=== PATIENT | male | born 1970 | race American Indian/Alaskan Native ===

== ENCOUNTER 2019-05-27 11:16 | Emergency (ER) | payer MEDICAID ==
[~2019-05-27] VITALS: Ht 172.7 cm; Wt 84.5 kg
--- NOTE | 2019-05-27 11:40 | NUR ---
Pt arrived on the unit ambulating self, accompanied by EMT. Pt is changed in to hospital for special care scrubs. All personal items inventoried and valuables placed in to safe, clothing and shoes placed in ambulance bay lockers. Pt is here on a 5150 written at [facility] for SI. He reports that he has a PMH: schizophrenia with AH. He reports currently being suicidal without a plan. He also states that he has AH that are derogatory but no commanding. His speech is clear and his eye contact is direct. He has been on risperdone on the past, but he reports that he was taken off of it by his doctor. He states that this has helped his symptoms in the past. He reports feelings of paranoia. He exhibits a flat affect. No visible rashes or open wounds on visible skin. Pt is a non smoker. No distress observed at this time. Pt is sitting at edge of bed. Pt was oriented to the unit, questions were answered and Pt denied needs at this time. Water and snack given to patient. Will continue to monitor.
[2019-05-27] MEDS ORDERED: OLANZapine 2.5MG tablet PO STA (12:19)
[2019-05-27] MEDS ORDERED: risperiDONE 0.5mg tablet PO ONE (12:20)
[2019-05-27 12:37] LABS: URINE AMPHETAMINE SCREEN NEGATIVE (Neg); URINE BARBITUATE SCREEN NEGATIVE (Neg); URINE BENZODIAZEPINES SCREEN NEGATIVE (Neg); URINE CANNABINOID SCREEN NEGATIVE (Neg); URINE COCAINE SCREEN NEGATIVE (Neg); URINE METHADONE SCREEN NEGATIVE (Neg); URINE OPIATE SCREEN NEGATIVE (Neg); URINE PHENCYCLIDINE SCREEN NEGATIVE (Neg)
[2019-05-27 12:47] LABS: BASOPHILS # (AUTO) 0.1 X10'3 (0-0.2); BASOPHILS % (AUTO) 0.8 % (0-1); EOSINOPHILS # (AUTO) 0.4 X10'3 (0-0.9); EOSINOPHILS % (AUTO) 5.8 % (0-6); HEMATOCRIT 44.1 % (42.0-52.0); HEMOGLOBIN 15.1 g/dl (14.0-17.9); LYMPHOCYTES # (AUTO) 1.6 X10'3 (1.1-4.8); LYMPHOCYTES % (AUTO) 21.4 % (21-51); MEAN CORPUSCULAR HEMOGLOBIN 33.2 PG (27.0-31.0); MEAN CORPUSCULAR HGB CONC 34.3 g/dL (33.0-36.5); MEAN CORPUSCULAR VOLUME 96.8 FL (78-98); MEAN PLATELET VOLUME 7.9 FL (7.4-10.4); MONOCYTES # (AUTO) 0.5 X10'3 (0-0.9); MONOCYTES % (AUTO) 6.8 % (2-12); NEUTROPHILS # (AUTO) 4.9 X10'3 (1.8-7.7); NEUTROPHILS % (AUTO) 65.2 % (42-75); PLATELET COUNT 310 X10'3 (140-440); RED BLOOD COUNT 4.56 X10'6 (4.70-6.10); RED CELL DISTRIBUTION WIDTH 14.5 % (11.5-14.5); WHITE BLOOD COUNT 7.5 X10'3 (4.5-11.0)
[2019-05-27 13:02] LABS: ALANINE AMINOTRANSFERASE 33 U/L (12-78); ALBUMIN 3.6 G/DL (3.4-5.0); ALBUMIN/GLOBULIN RATIO 0.9 (1.1-1.5); ALKALINE PHOSPHATASE 69 IU/L (46-116); ANION GAP 7 (8-16); ASPARTATE AMINO TRANSFERASE 21 U/L (10-37); BILIRUBIN,TOTAL 0.2 MG/DL (0.1-1.0); BLOOD UREA NITROGEN 17 MG/DL (7-18); BUN/CREATININE RATIO 15.6 (5.4-32.0); CALCIUM 8.4 MG/DL (8.5-10.1); CHLORIDE 106 MMOL/L (99-107); CREATININE 1.09 MG/DL (0.60-1.10); GLUCOSE 98 MG/DL (70-104); POTASSIUM 4.2 MMOL/L (3.5-5.1); SODIUM 142 MMOL/L (135-145); TOTAL CARBON DIOXIDE 28.8 MMOL/L (24-32); TOTAL PROTEIN 7.5 G/DL (6.4-8.2); eGFR 72 ML/MIN
[2019-05-27 13:09] LABS: ETHANOL < 0.010 GM/DL (0.0-0.010)
--- NOTE | 2019-05-27 13:28 | NUR ---
Called lab RE: UA orders
[2019-05-27 13:40] LABS: CLARITY,URINE CLEAR (Clear); COLOR,URINE STRAW (Yellow); GLUCOSE, URINE NEGATIVE (Neg); KETONES,URINE NEGATIVE (Neg); LEUKOCYTE ESTERASE ,URINE NEGATIVE (Neg); NITRITES, URINE NEGATIVE (Neg); OCCULT BLOOD,URINE NEGATIVE (Neg); PH,URINE 5.5 (4.8-8.0); PROTEIN,URINE NEGATIVE (Neg); UROBILINOGEN,URINE 0.2 E.U/dL (0.2-1.0)
[2019-05-27 13:43] LABS: UA COLLECTION TYPE CLN CATCH MIDSTREAM
--- NOTE | 2019-05-27 14:06 | NUR ---
spoke with Dr Mesa. Will come over to evaluate pt for medical clearance
[2019-05-27] MEDS ORDERED: FLO0.4C PO (14:51)
[2019-05-27] MEDS ORDERED: METO-395 PO (14:51)
[2019-05-27] MEDS ORDERED: LEVO175T7 PO (14:51)
[2019-05-27] MEDS ORDERED: HYDR-3686 PO (14:51)
[2019-05-27] MEDS ORDERED: LIT300C PO (14:51)
--- NOTE | 2019-05-27 15:02 | NUR ---
PACKET FAXED TO [facility]
--- NOTE | 2019-05-27 17:15 | NUR ---
Pt is resting in bed peacefully at this time. No distress observed.
--- NOTE | 2019-05-27 20:00 | NUR ---
One to one with the patient to assess severity psychiatric symptoms. The patient is resting on his bed and awakened easily for the evening assessment. He stated that he has not been sleeping well at home and stated he has only been sleeping approximately 2 hours per night. He stated that his psychiatrist took him off his antipsychotic and that he has been hearing voices but having no visual hallucinations. He reports he was feeling paranoid at home but feels safe here. He reports feeling suicidal but denies having a plan.
--- NOTE | 2019-05-27 21:44 | NUR ---
The patient appears to be sleeping at this time.
[2019-05-27] MEDS ORDERED: lithium carbonate 300mg SR tablet (LithoBID) PO SCH (22:46)
[2019-05-27] MEDS ORDERED: hydrOXYzine 25 MG tablet PO SCH (22:46)
[2019-05-27] MEDS: tamsulosin 0.4mg capsule PO SCH (23:17)
[2019-05-27] MEDS: metoprolol succinate 25mg (24-HOUR) SR. Tablet PO SCH (23:17)
--- NOTE | 2019-05-27 23:48 | NUR ---
The patient appears to be sleeping
--- NOTE | 2019-05-28 02:00 | NUR ---
The patient has been accepted for an AM admit to [facility].
--- NOTE | 2019-05-28 04:51 | NUR ---
The patient appears to have been sleeping well during the night.
--- NOTE | 2019-05-28 06:30 | NUR ---
RN received report on pt. pt. sleeping. Normal rate and rhythm of of respirations noted.
[2019-05-28] MEDS ORDERED: OLANZAPINE 5 MG TABLET PO SCH (08:00)
[2019-05-28] MEDS ORDERED: levoTHYROXINE 175mcg tablet PO SCH (08:00)
--- NOTE | 2019-05-28 08:00 | NUR ---
Pt. awake for breakfast and took medications. Pt. denies SI/HI, A/V hallucinations but reports feeling paranoid and afraid for his life and the life of his daughter. RN reassured pt. that he is safe. Pt. reports feeling tired.
[2019-05-28] MEDS: metoprolol succinate 25mg (24-HOUR) SR. Tablet PO SCH (09:02)
[2019-05-28] MEDS: tamsulosin 0.4mg capsule PO SCH (09:02)
--- NOTE | 2019-05-28 10:00 | NUR ---
Pt asleep in bed. Normal rate and rhythm of respirations noted. Pt. will be transfered to [facility] when bed is available.
[2019-05-28] MEDS ORDERED: OLAN10TA3 PO (10:53)
--- NOTE | 2019-05-28 11:16 | NUR ---
Pt. discharged to [facility]. Pt. given discharge paper work and belongings sent with [facility] tech. Pt. accompanied by security and mental health tech. Pt. transfered via wheel chair.
[2019-05-28 12:23] VITALS: BP 111/69
== END 2019-05-28 11:16 | disposition home or self-care (01) ==
LOC: ER 11:17
DX: F29 Unspecified psychosis not due to a substance or known physiological condition (principal); F41.9 Anxiety disorder, unspecified; F31.9 Bipolar disorder, unspecified; F10.99 Alcohol use, unspecified with unspecified alcohol-induced disorder; F12.90 Cannabis use, unspecified, uncomplicated; Z88.0 Allergy status to penicillin; Z79.899 Other long term (current) drug therapy; Y90.9 Presence of alcohol in blood, level not specified
CPT/HCPCS: 36415; 80053; 80178; 80305; 80320; 81003; 84443; 85025; 99285; Z7610

== ENCOUNTER 2019-05-28 08:15 | Inpatient (IN) | payer MEDICAID ==
[~2019-05-28] VITALS: Ht 175.3 cm; Wt 84.5 kg
[~2019-05-28 08:15] MED LIST: FLO0.4C PO; HYDR-3686 PO; LEVO175T7 PO; LIT300C PO; METO-395 PO
[2019-05-28] MEDS ORDERED: mag hydrox/Alum hydrox/simeth 30ml oral suspension PO PRN (10:35)
[2019-05-28] MEDS ORDERED: acetaminophen 325mg tablet PO PRN (10:35)
[2019-05-28] MEDS ORDERED: NICOTINE POLACRILEX 2 MG LOZENGE BC PRN (10:35)
[2019-05-28] MEDS ORDERED: LORazepam 1 MG tablet PO PRN (10:35)
[2019-05-28] MEDS ORDERED: hydrOXYzine 25 MG tablet PO PRN (10:35)
[2019-05-28] MEDS ORDERED: magnesium hydroxide 30ml (MOM) UD suspension PO PRN (10:35)
[2019-05-28] MEDS ORDERED: loperamide 2mg capsule PO PRN (10:35)
[2019-05-28] MEDS ORDERED: OLAN10TA3 PO (10:53)
--- NOTE | 2019-05-28 11:36 | NUR ---
Admission note: Pt arrives today at 1120 on a 5150 for DTS. Pt complains of auditory hallucinations that are severe and troubling. Pt has paranoid ideation that his neighbor is plotting against him. He states that he wants to kill himself and plans to find lethal means. Pt also having difficulty sleeping. Pt has history of anxiety and Bipolar. Pt cooperative with admission process.
[2019-05-28 12:14] VITALS: BP 114/75
[2019-05-28] MEDS: acetaminophen 325mg tablet PO PRN (12:25)
[2019-05-28] MEDS: lurasidone 20mg tablet PO SCH (18:23)
[2019-05-28] MEDS ORDERED: ibuprofen 200mg tablet PO PRN (18:25)
[2019-05-28 19:00] VITALS: BP 115/80
[2019-05-28] MEDS: metoprolol succinate 25mg (24-HOUR) SR. Tablet PO SCH (20:58)
[2019-05-28] MEDS: tamsulosin 0.4mg capsule PO SCH (20:58)
[2019-05-28] MEDS: hydrOXYzine 25 MG tablet PO SCH (20:58)
[2019-05-28] MEDS ORDERED: lithium carbonate 300mg SR tablet (LithoBID) PO SCH (21:00)
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
[2019-05-29 07:00] VITALS: BP 100/73
[2019-05-29] MEDS: buPROPion 75mg tablet PO SCH (07:23)
[2019-05-29] MEDS: metoprolol succinate 25mg (24-HOUR) SR. Tablet PO SCH ×2 (07:23→21:13)
[2019-05-29] MEDS: tamsulosin 0.4mg capsule PO SCH ×2 (07:23→21:14)
[2019-05-29] MEDS: levoTHYROXINE 175mcg tablet PO SCH (07:23)
[2019-05-29 07:38] VITALS: BP 100/73
[2019-05-29] MEDS ORDERED: olanzapine 10mg tablet PO SCH (08:00)
[2019-05-29 08:11] LABS: CHOL/HDL RATIO 3.6 (0.00-4.99); CHOLESTEROL 189 MG/DL (0-200); HDL CHOLESTEROL 52 MG/DL (35-60); HEMOGLOBIN A1C 5.3 % (4.5-6.2); LDL CHOLESTEROL 125 MG/DL (50-100); TRIGLYCERIDES 165 MG/DL (20-135)
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
[2019-05-29] MEDS: lurasidone 20mg tablet PO SCH (17:51)
[2019-05-29 19:00] VITALS: BP 125/84
[2019-05-29] MEDS: hydrOXYzine 25 MG tablet PO SCH (21:13)
[2019-05-29] MEDS: lithium carbonate 150mg capsule PO SCH (21:14)
[2019-05-29] MEDS ORDERED: ibuprofen 200mg tablet PO PRN (22:40)
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
[2019-05-30 07:00] VITALS: BP 111/76
[2019-05-30] MEDS: levoTHYROXINE 175mcg tablet PO SCH ×2 (08:06→10:06)
[2019-05-30] MEDS: buPROPion 75mg tablet PO SCH (08:06)
[2019-05-30] MEDS: tamsulosin 0.4mg capsule PO SCH ×2 (08:06→21:58)
[2019-05-30] MEDS: metoprolol succinate 25mg (24-HOUR) SR. Tablet PO SCH ×2 (08:07→21:58)
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
[2019-05-30] MEDS ORDERED: lurasidone 20mg tablet PO SCH (18:00)
[2019-05-30 20:00] VITALS: BP 124/86
[2019-05-30] MEDS: hydrOXYzine 25 MG tablet PO SCH (21:58)
[2019-05-30] MEDS: traZODone 50mg tablet PO SCH (21:59)
[2019-05-30] MEDS: lithium carbonate 150mg capsule PO SCH (21:59)
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
[2019-05-31 07:00] VITALS: BP 110/75
[2019-05-31] MEDS: buPROPion 75mg tablet PO SCH (07:42)
[2019-05-31] MEDS: levoTHYROXINE 175mcg tablet PO SCH (07:42)
[2019-05-31] MEDS: metoprolol succinate 25mg (24-HOUR) SR. Tablet PO SCH ×2 (07:42→20:39)
[2019-05-31] MEDS: tamsulosin 0.4mg capsule PO SCH ×2 (07:42→20:39)
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
[2019-05-31] MEDS: lurasidone 20mg tablet PO SCH (17:46)
[2019-05-31 19:57] VITALS: BP 120/93
[2019-05-31] MEDS: hydrOXYzine 25 MG tablet PO SCH (20:39)
[2019-05-31] MEDS: traZODone 50mg tablet PO SCH (20:40)
[2019-05-31] MEDS: lithium carbonate 150mg capsule PO SCH (20:40)
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
[2019-06-01] MEDS: buPROPion 75mg tablet PO SCH (07:10)
[2019-06-01] MEDS: tamsulosin 0.4mg capsule PO SCH ×2 (07:10→20:42)
[2019-06-01] MEDS: levoTHYROXINE 175mcg tablet PO SCH (07:10)
[2019-06-01 07:43] VITALS: BP 104/69
[2019-06-01] MEDS: metoprolol succinate 25mg (24-HOUR) SR. Tablet PO SCH ×2 (08:13→20:42)
--- NOTE | 2019-06-01 09:48 | NUR ---
Initial: Pt admit w/ MDD and psychosis per MD. PO 100% avg meals meeting needs. LBM 05/31. No nutrition concerns at this time. Will continue to monitor. Rec: 1. continue regular diet 2. routine bowel care 3. wt per rx Addendum: 06/01/19 at [address] Amended: Links added. Addendum: 06/01/19 at [address] Initial: Pt admit w/ MDD and psychosis per MD. PO 100% avg meals meeting needs. LBM 05/31. No nutrition concerns at this time. Will continue to monitor. Rec: 1. continue regular diet 2. routine bowel care 3. anti-hyperlipidemic per MD approval; TG 165 4. wt per rx
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
[2019-06-01] MEDS: lurasidone 20mg tablet PO SCH (18:16)
[2019-06-01 19:00] VITALS: BP 107/76
[2019-06-01] MEDS: hydrOXYzine 25 MG tablet PO SCH (20:43)
[2019-06-01] MEDS: lithium carbonate 150mg capsule PO SCH (20:43)
[2019-06-01] MEDS: traZODone 50mg tablet PO SCH (20:43)
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
[2019-06-02 07:00] VITALS: BP 102/71
[2019-06-02] MEDS: buPROPion 75mg tablet PO SCH (07:18)
[2019-06-02] MEDS: levoTHYROXINE 175mcg tablet PO SCH (07:19)
[2019-06-02] MEDS: tamsulosin 0.4mg capsule PO SCH ×2 (07:19→20:26)
[2019-06-02] MEDS: metoprolol succinate 25mg (24-HOUR) SR. Tablet PO SCH ×2 (07:23→20:26)
[2019-06-02] MEDS ORDERED: tuberculin, purif. prot. deriv. 5 units/0.1ml ID ONE (09:45)
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
[2019-06-02] MEDS: lurasidone 20mg tablet PO SCH (18:09)
[2019-06-02 19:00] VITALS: BP 115/77
[2019-06-02] MEDS: traZODone 50mg tablet PO SCH (20:26)
[2019-06-02] MEDS: hydrOXYzine 25 MG tablet PO SCH (20:26)
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
[2019-06-03 07:00] VITALS: BP 103/71
[2019-06-03] MEDS: levoTHYROXINE 175mcg tablet PO SCH (07:07)
[2019-06-03] MEDS: tamsulosin 0.4mg capsule PO SCH ×2 (07:55→20:43)
[2019-06-03] MEDS: metoprolol succinate 25mg (24-HOUR) SR. Tablet PO SCH ×2 (07:55→20:43)
[2019-06-03] MEDS: buPROPion 75mg tablet PO SCH (07:55)
[2019-06-03] MEDS: acetaminophen 325mg tablet PO PRN (08:00)
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
[2019-06-03] MEDS: lurasidone 20mg tablet PO SCH (18:07)
[2019-06-03 19:37] VITALS: BP 112/77
[2019-06-03] MEDS: traZODone 50mg tablet PO SCH (20:43)
[2019-06-03] MEDS: hydrOXYzine 25 MG tablet PO SCH (20:43)
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
[2019-06-04] MEDS: metoprolol succinate 25mg (24-HOUR) SR. Tablet PO SCH ×3 (07:13→20:51)
[2019-06-04] MEDS: tamsulosin 0.4mg capsule PO SCH ×2 (07:13→20:51)
[2019-06-04] MEDS: buPROPion 75mg tablet PO SCH (07:13)
[2019-06-04] MEDS: levoTHYROXINE 175mcg tablet PO SCH (07:13)
[2019-06-04 07:42] VITALS: BP 96/67
--- NOTE | 2019-06-04 11:55 | NUR ---
SS had T/C w/[facility], per t/c pt can come to the [facility] on Saturday, will need to d/c w/30-days meds. Plan: SS to coordinate w/prescriber so pt can d/c w/30-days meds or 5-days meds & script for refill. Marzena [place] PUBLIC ADMINISTRATION TEACHER Addendum: 06/04/19 at 1156 by Marzena [place] Amended: Links added.
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
[2019-06-04] MEDS: lurasidone 20mg tablet PO SCH (17:31)
[2019-06-04 19:57] VITALS: BP 117/80
[2019-06-04] MEDS: traZODone 50mg tablet PO SCH (20:51)
[2019-06-04] MEDS: hydrOXYzine 25 MG tablet PO SCH (20:52)
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
[2019-06-05] MEDS: metoprolol succinate 25mg (24-HOUR) SR. Tablet PO SCH ×2 (07:46→20:47)
[2019-06-05] MEDS: tamsulosin 0.4mg capsule PO SCH ×2 (07:46→20:47)
[2019-06-05] MEDS: buPROPion 75mg tablet PO SCH (07:46)
[2019-06-05] MEDS: levoTHYROXINE 175mcg tablet PO SCH (07:48)
[2019-06-05 08:00] VITALS: BP 100/67
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
[2019-06-05] MEDS: lurasidone 20mg tablet PO SCH (18:35)
[2019-06-05 20:00] VITALS: BP 112/77
[2019-06-05] MEDS: traZODone 50mg tablet PO SCH (20:47)
[2019-06-05] MEDS: hydrOXYzine 25 MG tablet PO SCH (20:48)
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
[2019-06-06] MEDS: levoTHYROXINE 175mcg tablet PO SCH (06:41)
[2019-06-06] MEDS: metoprolol succinate 25mg (24-HOUR) SR. Tablet PO SCH ×2 (07:58→20:31)
[2019-06-06] MEDS: buPROPion 75mg tablet PO SCH (07:58)
[2019-06-06] MEDS: tamsulosin 0.4mg capsule PO SCH ×2 (07:58→20:31)
[2019-06-06 08:35] VITALS: BP 98/65
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
[2019-06-06] MEDS: lurasidone 20mg tablet PO SCH (17:42)
[2019-06-06 20:00] VITALS: BP 116/78
[2019-06-06] MEDS: traZODone 50mg tablet PO SCH (20:31)
[2019-06-06] MEDS: hydrOXYzine 25 MG tablet PO SCH (20:31)
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
[2019-06-07 07:00] VITALS: BP 214/103
[2019-06-07] MEDS: buPROPion 75mg tablet PO SCH (07:17)
[2019-06-07] MEDS: tamsulosin 0.4mg capsule PO SCH ×2 (07:17→20:59)
[2019-06-07] MEDS: metoprolol succinate 25mg (24-HOUR) SR. Tablet PO SCH ×2 (07:17→20:59)
[2019-06-07] MEDS: levoTHYROXINE 175mcg tablet PO SCH (07:17)
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
--- NOTE | 2019-06-07 10:04 | NUR ---
reassessment: Pt PO 100% avg meals meeting needs. LBM 06/06. No nutrition concerns at this time. Will continue to monitor. Rec: 1. continue regular diet 2. routine bowel care 3. anti-hyperlipidemic per MD approval; TG 165 4. wt per rx Addendum: 06/07/19 at [address] Amended: Links added.
[2019-06-07] MEDS: lurasidone 20mg tablet PO SCH (17:44)
--- NOTE | 2019-06-07 17:56 | NUR ---
Amend: Pt pleasant and cooperative throughout the afternoon. He was compliant with medication administration. Will continue to monitor.
[2019-06-07 19:39] VITALS: BP 110/73
[2019-06-07] MEDS: hydrOXYzine 25 MG tablet PO SCH (20:58)
[2019-06-07] MEDS: traZODone 50mg tablet PO SCH (20:58)
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
[2019-06-08 07:38] VITALS: BP 100/71
[2019-06-08] MEDS: levoTHYROXINE 175mcg tablet PO SCH (08:22)
[2019-06-08] MEDS: tamsulosin 0.4mg capsule PO SCH ×2 (08:23→20:29)
[2019-06-08] MEDS: metoprolol succinate 25mg (24-HOUR) SR. Tablet PO SCH ×2 (08:23→20:30)
[2019-06-08] MEDS: buPROPion 75mg tablet PO SCH (08:23)
[2019-06-08] MEDS ORDERED: METO-395 PO (08:57)
[2019-06-08] MEDS ORDERED: LEVO175T2 PO (08:57)
[2019-06-08] MEDS ORDERED: HYDR-3686 PO ×2 (08:57)
[2019-06-08] MEDS ORDERED: BUPR75TA12 PO (08:57)
[2019-06-08] MEDS ORDERED: LURA20TA PO (08:57)
[2019-06-08] MEDS ORDERED: TRAZ-251 PO (08:57)
[2019-06-08] MEDS ORDERED: tamsulosin capsule PO (08:57)
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
[2019-06-08] MEDS: acetaminophen 325mg tablet PO PRN (17:10)
[2019-06-08] MEDS: lurasidone 20mg tablet PO SCH (17:11)
[2019-06-08 20:10] VITALS: BP 97/65
[2019-06-08] MEDS: hydrOXYzine 25 MG tablet PO SCH (20:29)
[2019-06-08] MEDS: traZODone 50mg tablet PO SCH (20:30)
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
[2019-06-09] MEDS: tamsulosin 0.4mg capsule PO SCH (07:48)
[2019-06-09] MEDS: levoTHYROXINE 175mcg tablet PO SCH (07:48)
[2019-06-09] MEDS: metoprolol succinate 25mg (24-HOUR) SR. Tablet PO SCH (07:48)
[2019-06-09] MEDS: buPROPion 75mg tablet PO SCH (07:48)
[2019-06-09 08:00] VITALS: BP 125/71
--- NOTE | 2019-06-09 11:59 | NUR ---
DISCHARGE PLANNING Went to [facility] pharmacy inside [facility] to waste picker Ct's medications on his behalf in order for him to discharge to [facility]. They were out of latuda and it was too soon to order flomax and would have had to pay $[address] called his mom to see if she would bring him in his flomax from home. She may be able to do so tomorrow. MICHELLE Riley, called it in to [facility] with Good Rx coupon. Sheet Metal Worker to pick it up at [facility] to assist with Ct being able to discharge to [facility]. JACE Acuna Addendum: 06/09/19 at 1406 by Enma Miller Picked up Ct's Rx of Flomax at [facility]. Called [facility] [address] to see if his Rx of Latuda was ready and was informed it needs a prio-auth. Informed MICHELLE Riley, of this. JACE Acuna
--- NOTE | 2019-06-09 15:07 | NUR ---
Discharge: Patient ambulatory, steady gait with [facility] dray truck driver from the [facility]. Patient left with all his belongings and RX medications except Latuda. The [facility] is going to give him samples until the medication is approved. Dr Larios wrote the RX for the medicaiton. RN gave patient written and verbal d/c and RX instructions. Patient verbalized understanding. All questions were answered. Patient in no distress with pleasant affect. Patient denies suicidal/homicidal ideation. Patient was not here 21 days or greater and patient does not smoke and does not need nicotine replacement. Patient waved goodbye and wished us a Happy Thanksgiving. [facility] dray truck driver to take patient to [facility].
== END 2019-06-09 15:07 | disposition short-term general hospital (02) | DRG 751 ==
LOC: ADULT MH 08:15
PROVIDERS: ADMIT Psychiatry & Neurology Psychiatry; ATTEND Psychiatry & Neurology Psychiatry
DX: F33.3 Major depressive disorder, recurrent, severe with psychotic symptoms (principal); R45.851 Suicidal ideations; Z91.14 Patient's other noncompliance with medication regimen; E03.9 Hypothyroidism, unspecified; F41.1 Generalized anxiety disorder; F16.11 Hallucinogen abuse, in remission; E78.00 Pure hypercholesterolemia, unspecified; F10.10 Alcohol abuse, uncomplicated; N40.0 Benign prostatic hyperplasia without lower urinary tract symptoms; Z79.899 Other long term (current) drug therapy; Z81.8 Family history of other mental and behavioral disorders
CPT/HCPCS: 36415; 80061; 80178; 83036; 84443; 99285; Z7610

== ENCOUNTER 2021-02-20 22:33 | Emergency (ER) | payer MEDICAID ==
[~2021-02-20] VITALS: Ht 175.3 cm; Wt 84.1 kg
[~2021-02-20 22:33] MED LIST changes: +BUPR75TA12 PO; -FLO0.4C PO; +LEVO175T2 PO; -LIT300C PO; +LURA20TA PO; +TRAZ-251 PO; +tamsulosin capsule PO
[2021-02-21 02:04] LABS: BASOPHILS # (AUTO) 0.1 X10'3 (0-0.2); BASOPHILS % (AUTO) 1.2 % (0-1); EOSINOPHILS # (AUTO) 0.2 X10'3 (0-0.9); EOSINOPHILS % (AUTO) 2.4 % (0-6); HEMATOCRIT 40.6 % (42.0-52.0); HEMOGLOBIN 14.1 g/dl (14.0-17.9); LYMPHOCYTES # (AUTO) 4.1 X10'3 (1.1-4.8); LYMPHOCYTES % (AUTO) 41.5 % (21-51); MEAN CORPUSCULAR HEMOGLOBIN 33.2 PG (27.0-31.0); MEAN CORPUSCULAR HGB CONC 34.6 g/dL (33.0-36.5); MEAN PLATELET VOLUME 9.5 FL (7.4-10.4); MONOCYTES # (AUTO) 0.6 X10'3 (0-0.9); MONOCYTES % (AUTO) 5.7 % (2-12); NEUTROPHILS # (AUTO) 4.8 X10'3 (1.8-7.7); NEUTROPHILS % (AUTO) 49.2 % (42-75); PLATELET COUNT 250 X10'3 (140-440); RED BLOOD COUNT 4.23 X10'6 (4.70-6.10); RED CELL DISTRIBUTION WIDTH 15.1 % (11.5-14.5); WHITE BLOOD COUNT 9.8 X10'3 (4.5-11.0)
[2021-02-21] MEDS ORDERED: MIRT45TA83 PO (02:10)
[2021-02-21] MEDS ORDERED: HYDR50TA65 PO (02:12)
[2021-02-21 02:15] LABS: ALANINE AMINOTRANSFERASE 98 U/L (12-78); ALBUMIN 4.6 G/DL (3.4-5.0); ALBUMIN/GLOBULIN RATIO 1.4 (1.1-1.5); ALKALINE PHOSPHATASE 81 IU/L (46-116); ANION GAP 7 (8-16); ASPARTATE AMINO TRANSFERASE 72 U/L (10-37); BILIRUBIN,TOTAL 0.4 MG/DL (0.1-1.0); BLOOD UREA NITROGEN 14 MG/DL (7-18); BUN/CREATININE RATIO 9.5 (5.4-32.0); CALCIUM 8.8 MG/DL (8.5-10.1); CHLORIDE 105 MMOL/L (99-107); CREATININE 1.48 MG/DL (0.60-1.10); ETHANOL < 0.010 GM/DL (0.0-0.010); GLUCOSE 107 MG/DL (70-104); POTASSIUM 3.2 MMOL/L (3.5-5.1); SODIUM 143 MMOL/L (135-145); TOTAL CARBON DIOXIDE 30.6 MMOL/L (24-32); eGFR 50 ML/MIN
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
[2021-02-21 02:27] LABS: URINE AMPHETAMINE SCREEN NEGATIVE (Neg); URINE BARBITUATE SCREEN NEGATIVE (Neg); URINE BENZODIAZEPINES SCREEN NEGATIVE (Neg); URINE CANNABINOID SCREEN NEGATIVE (Neg); URINE COCAINE SCREEN NEGATIVE (Neg); URINE METHADONE SCREEN NEGATIVE (Neg); URINE OPIATE SCREEN NEGATIVE (Neg); URINE PHENCYCLIDINE SCREEN NEGATIVE (Neg)
[2021-02-21] MEDS ORDERED: potassium Cl 20 mEq SR tablet PO STA (03:09)
--- NOTE | 2021-02-21 03:42 | NUR ---
Patient was given PO potassium, able to swallow without any difficulty. Resting in stretcher, even and unlabores respirations.
--- NOTE | 2021-02-21 04:35 | NUR ---
PATIENT'S PACKET WAS SENT TO [facility].
[2021-02-21] MEDS ORDERED: ibuprofen 200mg tablet PO PRN (05:10)
--- NOTE | 2021-02-21 05:21 | NUR ---
Patient requesting ibuprofen, states "I think I have neuropathy or something in my feet". Also provided with more water. He mentioned that he called his daughter prior to coming in [facility] but she told him "This is your time to figure it out". He was asking if we have called his mother or daughter, encouraged that after 8 we can give him a phone. Patient states "not that they would care anyway".
[2021-02-21] MEDS ORDERED: levoTHYROXINE 175mcg tablet PO SCH (07:00)
[2021-02-21] MEDS ORDERED: hydrOXYzine 25 MG tablet PO SCH (08:00)
[2021-02-21 11:33] VITALS: BP 101/66
--- NOTE | 2021-02-21 12:00 | NUR ---
ASSUMED CARE OF PT FROM ANGELA MARTINEZ, PT IS RESTING QUIETLY ON WEN CARRERO AT BEDSIDE
--- NOTE | 2021-02-21 13:00 | NUR ---
PT CONTINUES TO REST QUIETLY ON GURNEY
--- NOTE | 2021-02-21 15:14 | NUR ---
PT IS BEING EVALUATED BY [facility] CLINICIAN
--- NOTE | 2021-02-21 15:59 | NUR ---
PT WANTS TO LEAVE, CLINICIAN WITH [facility] IS TRYING TO DEVELOP SAFETY PLAN WITH PT, PT IS VERBALLY ARGUING WITH STAFF, SECURITY AT BEDSIDE
--- NOTE | 2021-02-21 16:02 | NUR ---
PT HAS BELONGINGS AND WILL BE DC'D HOME "I WILL SLEEP WHEREVER I WANT TO", PT DID SAY HE WOULD GO TO APPOINTMENT TOMORROW FOR MENTAL HEALTH
[2021-02-21] MEDS ORDERED: mirtazapine 15mg tablet PO SCH (21:00)
== END 2021-02-21 16:36 | disposition home or self-care (01) ==
LOC: ER 22:34
DX: F22 Delusional disorders (principal); F41.9 Anxiety disorder, unspecified; F31.9 Bipolar disorder, unspecified; F12.90 Cannabis use, unspecified, uncomplicated; Z20.822 Contact with and (suspected) exposure to COVID-19; Z88.0 Allergy status to penicillin; Z79.899 Other long term (current) drug therapy
CPT/HCPCS: 36415; 80053; 80305; 80320; 84132; 85025; 87635; 99284; C9803; Q0177